=== PATIENT | male | born 1985 | race Caucasian/White ===

== ENCOUNTER 2017-10-11 16:54 | Emergency (ER) | payer BC ==
[~2017-10-11] VITALS: Ht 185.4 cm; Wt 93.0 kg
[2017-10-11 17:09] VITALS: BP 173/88
[2017-10-11] MEDS ORDERED: cefTRIAXone SOD 1,000 MG VL IM ONE (17:30)
[2017-10-11] MEDS ORDERED: cefTRIAXone 1GM/10ml IVPUSH 10 ML IV ONE ×2 (17:30)
== END 2017-10-11 18:01 | disposition home or self-care (01) ==
LOC: ER 17:08
DX: L03.113 Cellulitis of right upper limb (principal)
CPT/HCPCS: 96374